=== PATIENT | female | born 1950 | race Asian ===

== ENCOUNTER 2016-11-29 05:31 | Inpatient (IN) | payer OTHER ==
[~2016-11-29] VITALS: Ht 152.4 cm; Wt 64.1 kg
[~2016-11-29 05:31] MED LIST: AMLO-97 PO; DEXL30CA3 PO; IBUP200C5 PO; MONT10TA21 PO; TRAM50TA4 PO
[2016-11-29] MEDS ORDERED: RINGERS SOLUTION,LACTATED 1,000 ML IV ONE ×2 (05:48→06:50)
[2016-11-29] MEDS ORDERED: GELATIN SPONGE,ABSORBABLE 100 MM TP ONE (06:49)
[2016-11-29] MEDS ORDERED: SODIUM CHLORIDE 0.9% 10 ML ONE (06:49)
[2016-11-29] MEDS ORDERED: SODIUM CHLORIDE 0.9% 250 ML IV ONE (06:49)
[2016-11-29] MEDS ORDERED: SODIUM CHLORIDE 0.9% 0 ML IV ONE (06:49)
[2016-11-29] MEDS ORDERED: THROMBIN, BOVINE 20000 UNITS/VIAL POWDER TP ONE (06:50)
[2016-11-29] MEDS ORDERED: BACITRACIN 50,000 UNITS/VIAL ONE ×2 (06:50→06:59)
[2016-11-29] MEDS ORDERED: CLINDAMYCIN 600 MG/D5% WATER 50 ML IV ONE (07:00)
[2016-11-29] MEDS: RINGERS SOLUTION,LACTATED 1,000 ML IV SCH ×2 (07:00→21:15)
[2016-11-29] MEDS ORDERED: ROCURONIUM BROMIDE 10 MG/ML 5 ML VIAL ONE (07:15)
[2016-11-29] MEDS ORDERED: CLINDAMYCIN PHOS 150 MG/ML 4 ML VIAL ONE (07:15)
[2016-11-29] MEDS ORDERED: MEPERIDINE-PF 25 MG/ML SYRINGE IVP PRN (09:00)
[2016-11-29] MEDS ORDERED: FentaNYL CITRATE-PF 100 MCG/2 ML VIAL IVP PRN (09:00)
[2016-11-29] MEDS ORDERED: HYDROmorphone 2 MG/ML SYRINGE IVP PRN (09:00)
[2016-11-29] MEDS: OXYGEN THERAPY IH SCH ×2 (09:00→21:14)
[2016-11-29] MEDS: ACETAMINOPHEN 1000 MG/ISO-OSM 100 ML IV SCH ×2 (09:30→16:46)
[2016-11-29] MEDS: CYCLOBENZAPRINE HCL 10 MG TABLET PO SCH ×2 (09:30→20:18)
[2016-11-29] MEDS ORDERED: ZOLPIDEM TARTRATE 10 MG TABLET PO PRN (09:45)
[2016-11-29] MEDS ORDERED: ACETAMINOPHEN 1000 MG/ISO-OSM 100 ML IV ONE (09:55)
[2016-11-29] MEDS ORDERED: MAGNESIUM HYDROXIDE SUSPENSION 30 ML UDCUP PO PRN (10:45)
[2016-11-29] MEDS ORDERED: ONDANSETRON HCL 4 MG/2 ML VIAL IVP PRN ×2 (10:45)
[2016-11-29] MEDS ORDERED: ACETAMINOPHEN 325 MG TABLET PO PRN (10:45)
[2016-11-29] MEDS ORDERED: BENZOCAINE/MENTHOL LOZENGE [8 LOZENGES/PACKET] PO PRN (10:45)
[2016-11-29] MEDS ORDERED: OxyCODONE HCL/ACETAMINOPHEN 5-325 MG TABLET PO PRN (10:45)
[2016-11-29] MEDS ORDERED: MAG HYDROX/AL HYDROX/SIMETH 30 ML SUSP UDCUP PO PRN (10:45)
[2016-11-29] MEDS ORDERED: HYDROmorphone 2 MG/ML SYRINGE ONE (11:40)
[2016-11-29 12:55] VITALS: BP 138/74
[2016-11-29] MEDS: HYDROmorphone 2 MG/ML SYRINGE IVP PRN (13:45)
[2016-11-29 16:42] VITALS: BP 133/64
[2016-11-29] MEDS ORDERED: VANCOMYCIN HCL 1 GM/D5% WATER 200 ML IV SCH (18:00)
[2016-11-29 20:00] VITALS: BP 131/73
[2016-11-29] MEDS: MONTELUKAST SODIUM 10 MG TABLET PO SCH (20:17)
[2016-11-29] MEDS ORDERED: GLYCOPYRROLATE 0.2 MG/ML VIAL IM ONE (22:49)
[2016-11-29] MEDS ORDERED: ONDANSETRON HCL 4 MG/2 ML VIAL IVP ONE (22:49)
[2016-11-29] MEDS ORDERED: PHENYLEPHRINE HCL 10 MG/ML VIAL IVP ONE (22:49)
[2016-11-29] MEDS ORDERED: EPHEDrine SULFATE 50 MG/ML VIAL IM ONE (22:49)
[2016-11-29] MEDS ORDERED: LIDOCAINE HCL/PF 2% 5 ML VIAL IM ONE (22:49)
[2016-11-29] MEDS ORDERED: DEXAMETHASONE SOD PHOS 4 MG/ML VIAL IVP ONE (22:49)
[2016-11-29] MEDS ORDERED: ROCURONIUM BROMIDE 10 MG/ML 5 ML VIAL IVP ONE (22:49)
[2016-11-29] MEDS ORDERED: FentaNYL CITRATE-PF 100 MCG/2 ML VIAL IVP ONE (22:49)
[2016-11-29] MEDS ORDERED: KETAMINE HCL 50 MG/ML 10 ML VIAL IVP ONE (22:49)
[2016-11-29] MEDS ORDERED: METOCLOPRAMIDE HCL 5 MG/ML 2 ML VIAL IVP ONE (22:49)
[2016-11-29] MEDS ORDERED: MIDAZOLAM HCL 2 MG/2 ML VIAL IVP ONE (22:49)
[2016-11-29] MEDS ORDERED: SUCCINYLCHOLINE CHLORIDE 20 MG/ML 10 ML VIAL IVP ONE (22:49)
[2016-11-29] MEDS ORDERED: 0.9% SODIUM CHLORIDE 10 ML VIAL IVP ONE (22:49)
[2016-11-29] MEDS ORDERED: PROPOFOL 1% 20 ML VIAL IVP ONE (22:49)
[2016-11-29 23:43] VITALS: BP 134/69
[2016-11-30] MEDS: HYDROmorphone 2 MG/ML SYRINGE IVP PRN ×2 (00:16→06:48)
[2016-11-30] MEDS: ACETAMINOPHEN 1000 MG/ISO-OSM 100 ML IV SCH (01:21)
[2016-11-30 03:32] VITALS: BP 138/68
[2016-11-30 06:54] LABS: BASOPHILS % (AUTO) 0.2 % (0.0-2.0); EOSINOPHILS % (AUTO) 0 % (1.0-6.0); HEMATOCRIT 36.1 % (36-46); HEMOGLOBIN 12.2 g/dL (12.0-16.0); LYMPHOCYTES # (AUTO) 1.6 K/uL (1.0-4.8); LYMPHOCYTES % (AUTO) 13.5 % (22.0-44.0); MEAN CORPUSCULAR HEMOGLOBIN 29.3 pg (26.0-34.0); MEAN CORPUSCULAR HGB CONC 33.7 G/dL (31.0-37.0); MEAN CORPUSCULAR VOLUME 87 fL (80-100); MONOCYTES % (AUTO) 7.9 % (2.0-9.0); NEUTROPHILS # (AUTO) 9.5 K/uL (1.8-7.7); NEUTROPHILS % (AUTO) 78.4 % (40.0-70.0); PLATELET COUNT (AUTO) 247 K/uL (150-450); RED BLOOD CELL COUNT(AUTO) 4.16 MIL/uL (4.00-5.20); RED CELL DISTRIBUTION WIDTH 12.7 % (11.5-14.5); WHITE BLOOD COUNT (AUTO) 12.2 K/uL (4.5-11.0)
[2016-11-30 07:08] LABS: CALCIUM, TOTAL 8.9 mg/dL (8.8-10.5); CREATININE 1.02 mg/dL (0.60-1.30); POTASSIUM 4.7 mmol/L (3.5-5.1)
[2016-11-30 07:40] VITALS: BP 117/60
[2016-11-30] MEDS: DOCUSATE SODIUM 100 MG CAPSULE PO SCH ×2 (08:26→19:28)
[2016-11-30] MEDS: CYCLOBENZAPRINE HCL 10 MG TABLET PO SCH ×2 (08:26→19:28)
[2016-11-30] MEDS ORDERED: DOCUSATE SODIUM 100 MG CAPSULE PO SCH (09:00)
[2016-11-30] MEDS ORDERED: OxyCODONE HCL/ACETAMINOPHEN 5-325 MG TABLET PO PRN (09:30)
[2016-11-30 11:30] VITALS: BP 118/64
[2016-11-30] MEDS: OxyCODONE HCL/ACETAMINOPHEN 5-325 MG TABLET PO PRN ×2 (15:15→21:21)
[2016-11-30 15:16] VITALS: BP 140/69
[2016-11-30] MEDS: MONTELUKAST SODIUM 10 MG TABLET PO SCH (19:28)
[2016-11-30 19:57] VITALS: BP 140/72
[2016-11-30] MEDS: OXYGEN THERAPY IH SCH (20:00)
[2016-12-01 00:46] VITALS: BP 144/88
[2016-12-01] MEDS: OxyCODONE HCL/ACETAMINOPHEN 5-325 MG TABLET PO PRN ×2 (00:48→08:55)
[2016-12-01 04:35] VITALS: BP 145/79
[2016-12-01 07:30] VITALS: BP 145/78
[2016-12-01] MEDS: DOCUSATE SODIUM 100 MG CAPSULE PO SCH (08:55)
[2016-12-01] MEDS: CYCLOBENZAPRINE HCL 10 MG TABLET PO SCH (08:55)
[2016-12-01] MEDS ORDERED: OMEP10SU PO (09:20)
[2016-12-01] MEDS ORDERED: PERCT PO (09:23)
[2016-12-01] MEDS ORDERED: CYCL-309 PO (09:27)
[2016-12-01 11:30] VITALS: BP 136/78
== END 2016-12-01 12:40 | disposition home or self-care (01) | DRG 473 ==
LOC: 4E 05:31
PROVIDERS: ADMIT Neurological Surgery; ATTEND Neurological Surgery
PROC: 0RB30ZZ Excision of Cervical Vertebral Disc, Open Approach (ICD-10-PCS; 2016-11-29)
PROC: 0RG20A0 Fusion of 2 or more Cervical Vertebral Joints with Interbody Fusion Device, Anterior Approach, Anterior Column, Open Approach (ICD-10-PCS; principal; 2016-11-29 07:30)
DX: M50.123 Cervical disc disorder at C6-C7 level with radiculopathy (principal); I10 Essential (primary) hypertension; D72.829 Elevated white blood cell count, unspecified; Z86.73 Personal history of transient ischemic attack (TIA), and cerebral infarction without residual deficits; Z88.0 Allergy status to penicillin
CPT/HCPCS: 86850; 86900; 86901; 87081; 97161; 97165; 97530; C1713; G0238; J0131; J0330; J1100; J1170; J2250; J2370; J2405; J2704; J2765; J3010; J3370; J3490; J7030; J7050; J7120; S0077